=== PATIENT | male | born 1955 | race Caucasian/White ===

== ENCOUNTER → 2018-08-27 15:54 | Outpatient (CLI) | payer OTHER, SELFPAY ==
--- NOTE | 2018-08-27 | DI.US.S_ITS ---
PROCEDURE: US SCROTUM INDICATIONS: LEFT TESTICULAR MASS TECHNIQUE: Real-time scanning was performed of the scrotum and testicles, with image documentation. Color and pulse Doppler interrogation was performed of both testicles. COMPARISON: None. FINDINGS: Right: Testicle is normal in size at 4.5 x 2.3 x 2.8 cm, and homogenous in echotexture. Epididymis is normal in overall size. There is a 9 mm right epididymal head cyst seen. No hydrocele. No varicocele can be seen. Overlying scrotal skin is normal in thickness. Left: Testicle is normal in size at 4.4 x 2.9 x 2.9 cm, and homogeneous in echotexture. A presumed left epididymal cyst is seen that measures 2.7 x 2 x 2.4 cm. The left epididymis is not seen separate from this cyst. No hydrocele. There is a left-sided varicocele seen. Overlying scrotal skin is normal in thickness. Doppler: Color and pulse Doppler demonstrate normal and symmetric arterial flow in both testicles. IMPRESSION: There is a cystic lesion seen on the left, which is most likely related to a large left epididymal cyst that measures 2.7 x 2 x 2.4 cm. Left-sided varicocele noted. Dictated by: Kendrick Ramírez M.D. on 08/27/2018 at 16:42 Approved by: Kendrick Ramírez M.D. on 08/27/2018 at 16:46
== END ==
PROVIDERS: PCP Family Medicine; Visit Provider Family Medicine
DX: N50.3 Cyst of epididymis (principal); I86.1 Scrotal varices
CPT/HCPCS: 76870

== ENCOUNTER → 2019-10-19 13:37 | Outpatient (CLI) | payer OTHER, SELFPAY ==
--- NOTE | 2019-10-19 | DI.CT.S_ITS ---
PROCEDURE: CT SINUS SCREEN WO CON INDICATIONS: Other chronic sinusitis TECHNIQUE: Noncontrast 3.0 mm axial images acquired from the frontal sinuses to the mid-sella, with coronal and sagittal reformats. For radiation dose reduction, the following was used: automated exposure control, adjustment of mA and/or kV according to patient size. COMPARISON: [facility], , CT SINUS, 06/19/2006, 16:25. [facility], CT SINUS, 05/05/2006, 15:32. FINDINGS: Image quality: Excellent. Maxillary Sinuses: Subtotal opacification is seen of the ethmoid air cells. There is demineralization seen of the medial ovalles of the maxillary sinuses. Ethmoid Air Cells: At least moderate mucosal thickening is seen within the ethmoid air cells. There is demineralization seen of the ethmoid air cell septations. Sphenoid Sinuses: No bony remodeling or destruction. Moderate mucosal thickening is seen involving the left sphenoid sinus. There is mild mucosal thickening seen on the right. No bony changes are seen. Frontal Sinuses: There is moderate mucosal thickening involving the right frontal sinus. Mild mucosal thickening is seen involving the left frontal sinus. No frontal sinus bony changes are seen. Ostiomeatal Complexes: Ostiomeatal complexes are patent occluded with soft tissue thickening. There is demineralization of the uncinate process. Miscellaneous: Visualized intra-orbital contents are normal. No donis bullosa or paradoxical turbinate curvature. There is mild to moderate rightward nasal septal deviation. IMPRESSION: Paranasal sinus disease is seen, which is most prominent involving the maxillary sinuses. The degree of mucosal thickening is worse than in 2006. Areas of bony demineralization are seen, which are consistent with chronic sinusitis. The ostiomeatal complexes are opacified, with demineralization of the uncinate processes. Dictated by: Kendrick Ramírez M.D. on 10/19/2019 at 13:12 Approved by: Kendrick Ramírez M.D. on 10/19/2019 at 13:16
== END ==
PROVIDERS: PCP Family Medicine; Visit Provider Otolaryngology
DX: J32.8 Other chronic sinusitis (principal)
CPT/HCPCS: 70486

== ENCOUNTER → 2020-10-24 08:35 | Outpatient (CLI) | payer OTHER, SELFPAY ==
[2020-10-24 11:19] LABS: COVID19 -Nasal RAPID Negative (Negative)
== END ==
PROVIDERS: Visit Provider Nurse Practitioner
DX: Z20.822 Contact with and (suspected) exposure to COVID-19 (principal)
CPT/HCPCS: 87635

== ENCOUNTER 2020-10-26 11:59 | Day surgery (SDC) | payer OTHER, SELFPAY ==
[2020-10-26] VITALS (12 sets, daily range): BP systolic 88–108; BP diastolic 55–73; PULSE 48–59; RESP 12–19; TEMP 35.7–36.7; O2SAT 93–98; BMI 32.1
--- NOTE | 2020-10-26 12:14 | PM.HP.1 ---
History of Present Illness History of Present Illness Date Patient Seen: 10/26/20 Chief complaint: SCREENING COLONOSCOPY Narrative: 64 Years Old Male seen today for consideration of a screening colonoscopy. Last colonoscopy in 2008, no pathology or operative note available at time dictation. There have been no lower GI symptoms suggesting disease such as change in bowel habits, bleeding, abdominal pain or anemia. There's been no family history of colon cancer or colon polyps. Overall health issues have been stable, including no major cardiac events for at least 6 weeks. Past Medical History: DYSLIPIDEMIA Anosmia TENDONITIS, SHOULDER, RIGHT Testicular mass, left SEBORRHEIC KERATOSIS Burning on urinatio PROSTATITIS, ACUTE PAIN, HIP, LEFT EPIDIDYMITIS/ORCHITIS ACTINIC KERATOSIS SINUSITIS, CHRONIC Past Surgical History: Colonoscopy, 2008 Family History: Father: possible colon polyps Mother: Hypertension Siblings: Social History: Marital Status: Children: Occupation: [employer] Household Members: Spouse Cathleen Robin FCAminta Education: 12 + trade school 2 beers per day, 2 joints per day Alcohol drinks/day: 2 per day beer and vodka Meds Home Medications and Allergies Home Medications Medication Instructions Recorded Confirmed Type ibuprofen 500 mg PO Q6H PRN 10/26/20 10/26/20 History Allergies Allergy/AdvReac Type Severity Reaction Status Date / Time No Known Drug Allergies Allergy Verified 10/26/20 12:06 Review of Systems Review of Systems ROS: Yes All systems reviewed with the patient and are negative except as otherwise documented Exam Narrative Exam Narrative: General: well developed, well nourished, in no acute distress, Head: normocephalic and atraumatic, Lungs: normal respiratory effort, clear bilaterally to auscultation, no wheezes rales or rhonchi. Heart: normal rate and regular rhythm, no murmurs, rubs, gallops, or clicks, Abdomen: abdomen soft and non-tender without masses, organomegaly, or abdominal wall hernias, bowel sounds positive. Skin: intact without suspicious lesions or rashes, Psych: alert and cooperative; normal mood and affect; normal attention span and concentration; cognition, remote and recent memory appear to be intact, Assessment & Plan Assessment & Plan narrative: 1. Screening for colon cancer Plan for colonoscopy. The nature and character of the procedure as well as anticipated results were discussed. The possibility of not completing the procedure was also discussed. Possible complications including aspiration pneumonia, bleeding, perforation and reaction to medications either for sedation or preparation and missed lesions were discussed. Questions were answered and proceeding to the colonoscopy was elected. Informed consent signed. I sincerely appreciate the referral allowing me to participate in this patient's care. Please contact me with any questions or concerns.
--- NOTE | 2020-10-26 12:16 | PM.OP.ENDO ---
Operative Date/Time/Diagnoses Date of procedure: 10/26/20 Procedure Notes SCOAP/Timeout: 13:12 Procedure in detail: ENDOSCOPIST: Clari Figueroa MD Sedation RN: Massiel Williamson RN Sedation start time: 1:13 p.m. Sedation end time: 1:37 p.m. PROCEDURE: Colonoscopy INDICATIONS: 1. Screening for colon cancer MEDICATION: Levsin 0.125 mg sublingual, incremental doses of Versed and fentanyl until appropriate level sedation achieved. ASA CLASS: 2 CECAL WITHDRAWAL TIME: 10 minutes COMPLICATIONS: None. EXTENT OF PROCEDURE: Cecum. QUALITY OF PREP: Good with portions of liquid stool. PROCEDURE: Prior to insertion of the colonoscope, a digital rectal examination was accomplished with circumferential palpation of the distal rectal mucosa without significant findings being noted. The high-definition colonoscope was passed into the rectum in the usual fashion and advanced over to the cecum without difficulty. The ileocecal valve, appendiceal stoma, and medial wall all could be inspected and no abnormalities were seen. ASCENDING COLON: As the colonoscope was withdrawn, care was taken to expose and inspect the haustral folds and no abnormalities were seen. HEPATIC FLEXURE: Normal, no polyps, diverticula or other abnormalities. TRANSVERSE COLON: Normal, no polyps, diverticula or other abnormalities. DESCENDING COLON: Normal, no polyps, diverticula or other abnormalities. SIGMOID COLON: Normal, no polyps, diverticula or other abnormalities. RECTUM: Normal. J maneuver was produced. There was no significant perianal disease. The J maneuver was broken. The remainder of the rectum was inspected and there was moderate internal hemorrhoid disease. The scope was withdrawn. IMPRESSION: 1. Normal colonoscopy 2. Internal hemorrhoids PLAN: 1. Repeat colonoscopy 10 years. The possibility of a missed lesion including a malignancy has been discussed with the patient previously. Potential alarm symptoms have been discussed and should be reported immediately.
[2020-10-26] MEDS: LACTATED RINGERS 1,000 ML 200 ML IV (12:24)
[2020-10-26] MEDS: HYOSCYAMINE 0.125 MG TABLET PO (12:25)
[2020-10-26] MEDS: fentaNYL 250 MCG/5 ML INJ IV (13:22)
[2020-10-26] MEDS: MIDAZOLAM 5 MG/5 ML VIAL IV (13:22)
--- NOTE | 2020-10-26 15:06 | SUR.PHASEII ---
Stable colon, left when re4ady and left in stable condition.
== END 2020-10-26 15:03 | disposition home or self-care (01) ==
PROVIDERS: PCP Family Medicine; Referring Provider Student in an Organized Health Care Education/Training Program; Visit Provider Student in an Organized Health Care Education/Training Program
PROC: 0DJD8ZZ Inspection of Lower Intestinal Tract, Via Natural or Artificial Opening Endoscopic (ICD-10-PCS; CPT 45378; principal; 2020-10-26 13:00)
DX: Z12.11 Encounter for screening for malignant neoplasm of colon (principal); K64.8 Other hemorrhoids
CPT/HCPCS: 45378; J2250; J3010

== ENCOUNTER → 2021-04-23 12:00 | Outpatient (CLI) | payer OTHER, SELFPAY ==
--- NOTE | 2021-04-23 | DI.RAD.S_ITS ---
PROCEDURE: XR HIP W PEL IF DONE LT 2V INDICATIONS: left hip pain TECHNIQUE: AP pelvis with lateral view(s) of the left hip(s). COMPARISON: [facility], CR, [id number] W PEL IF PERFORMED, 11/07/2016, 16:20. FINDINGS: Bones: Significant progression of degenerative arthritis of the left hip, now severe. Cannot exclude avascular necrosis. Shallow right acetabulum with mild lateral unroofing of the right femoral head. Mild right hip degenerative arthritis. No acute fracture or dislocation. Soft tissues: The visualized bowel gas pattern is normal. No suspicious soft tissue calcifications. IMPRESSION: 1. Significant progression of degenerative arthritis of the left hip, now severe. Cannot exclude avascular necrosis. 2. Shallow right acetabulum, mild right hip degenerative arthritis. Dictated by: Jon Urena M.D. on 04/23/2021 at 17:04 Approved by: Jon Urena M.D. on 04/23/2021 at 17:06
== END ==
PROVIDERS: PCP Family Medicine; Referring Provider Family Medicine; Visit Provider Family Medicine
DX: M25.552 Pain in left hip (principal); M16.0 Bilateral primary osteoarthritis of hip
CPT/HCPCS: 73502

== ENCOUNTER → 2021-08-02 09:16 | Outpatient (CLI) | payer OTHER, SELFPAY ==
[2021-08-02 10:11] LABS: Add Manual Diff / Slide Review NO; Basophils Absolute Auto 100 /uL (0-100); Basophils Percent Auto 1.3 % (0-2); Eosinophils Absolute Auto 0 /uL (0-450); Hemoglobin 14.3 g/dL (13.5-17.5); Lymphocytes Absolute Auto 1200 /uL (1100-4500); Lymphocytes Percent Auto 29.8 % (25-40); Mean Corpuscular HGB Conc 34.1 % (30-36); Mean Corpuscular Hemoglobin 34.5 PG (26-34); Mean Corpuscular Volume 101.4 fL (80-100); Monocytes Absolute Auto 300 /uL (0-900); Monocytes Percent Auto 7.7 % (3-14); Neutrophils Absolute Auto 2400 /uL (1500-7000); Neutrophils Percent Auto 60.2 % (50-75); Platelet Count 178 X10^3/uL (150-400); Red Blood Cell Count 4.14 X10^6/uL (4.5-5.9); Red Cell Distribution Width 13.2 % (11.6-14.8); White Blood Cell Count 3.9 X10^3/uL (4.5-11.0)
[2021-08-02 10:17] LABS: Appearance Urine UA CLEAR; Bilirubin Urine UA 3+ (NEGATIVE); Color Urine UA YELLOW; Glucose Urine UA NEGATIVE (Negative); Ketones Urine UA NEGATIVE (NEGATIVE); Leukocyte Esterase Urine UA NEGATIVE (NEGATIVE); Nitrite Urine UA NEGATIVE (Negative); Occult Blood Urine UA NEGATIVE (Negative); Protein Urine UA NEGATIVE (Negative); Specific Gravity Urine UA 1.025 (1.000-1.035); Urobilinogen Urine UA 0.2 E.U./dL (0.2); pH Urine UA 5.5 (4.5-8.0)
[2021-08-02 10:25] LABS: Hemoglobin A1C% w Est Avg Glu 5.1 % (4.0-6.0)
[2021-08-02 10:29] LABS: Bacteria Urine None Seen; Culture Indicated Urine Cult Not Indicated; Ictotest Urine Negative (Negative); Mucus Urine 1+ (Negative); RBC Urine None Seen (0-5/HPF); Squamous Epithelial Cell Urine 0-1 /HPF (0-5/HPF); WBC Urine None Seen (0-5/HPF)
[2021-08-02 10:57] LABS: BUN Creatinine Ratio 25.3 (6-22); Blood Urea Nitrogen 22 mg/dL (9-20); Calcium 8.8 mg/dL (8.4-10.2); Carbon Dioxide 26 mmol/L (22-32); Chloride 104 mmol/L (98-107); Estimated Glomerular Filt Rate > 60.0 mL/min (>60); Glucose 120 mg/dL (80-110); HEMOLYSIS < 15 (0-50); Potassium 4.7 mmol/L (3.4-5.1); Sodium 138 mmol/L (137-145)
== END ==
PROVIDERS: PCP Family Medicine; Referring Provider Orthopaedic Surgery; Visit Provider Orthopaedic Surgery
DX: Z01.818 Encounter for other preprocedural examination (principal); R73.9 Hyperglycemia, unspecified; Z01.812 Encounter for preprocedural laboratory examination; N39.0 Urinary tract infection, site not specified
CPT/HCPCS: 36415; 80048; 81001; 83036; 85025; 93005; 93010

== ENCOUNTER → 2021-09-11 08:31 | Outpatient (CLI) | payer OTHER, SELFPAY ==
[2021-09-11 11:51] LABS: COVID19 -Nasal RAPID Negative (Negative)
== END ==
PROVIDERS: PCP Family Medicine; Visit Provider Physician Assistant
DX: Z20.822 Contact with and (suspected) exposure to COVID-19 (principal)
CPT/HCPCS: 87635

== ENCOUNTER 2021-09-12 06:36 | Day surgery (SDC) | payer OTHER, SELFPAY ==
[2021-09-03 08:52] VITALS: BMI 28.1
[2021-09-12] VITALS (13 sets, daily range): BP systolic 99–130; BP diastolic 62–97; PULSE 62–74; RESP 12–17; TEMP 36.3–36.8; O2SAT 95–99; BMI 28.1
[2021-09-12] MEDS: LACTATED RINGERS 1,000 ML 42 ML IV ×2 (07:10→11:03)
[2021-09-12] MEDS: ACETAMINOPHEN 325 MG TABLET 975 MG PO (07:13)
[2021-09-12] MEDS: CELECOXIB 200 MG CAPSULE PO (07:14)
[2021-09-12] MEDS: VANCOMYCIN 1,000 MG/200 ML PIGGYBACK 200 MG IV (07:14)
--- NOTE | 2021-09-12 07:27 | PM.PREOP ---
Pre-operative Note COVID-19 COVID-19 status: Negative Interval Note History & Physical reviewed/Exam performed by Physician: Yes Changes to H&P: No
--- NOTE | 2021-09-12 07:28 | PM.OP.1 ---
Operative Date/Time/Diagnoses Date of procedure: 09/12/21 Time of procedure: 07:50 Pre-op diagnosis: left hip OA Post-op diagnosis: same Procedure & Clinicians Procedure: Left total hip arthroplasty anterior approach Same procedure as scheduled: Yes Indications: The patient has had progressively worsening left hip pain with radiographic changes consistent with arthritis. Non-operative management has failed and the patient has requested total hip replacement. The risks, benefits and alternatives to surgery were discussed with the patient prior to proceeding. Risks discussed included, but were not limited to, failure to relieve pain, leg length discrepancy, dislocation, stiffness, infection, nerve damage, deep venous thrombosis, pulmonary embolism, stroke, coma, heart attack, permanent paralysis and , as well as the potential need for eventual revision of the prosthetic. Surgeon: Natalie Epstein Customer Acquisition Manager: Aaron Gr Anesthesia Type: General and Spinal Operative Notes Findings: Severe left hip osteoarthritis, adequate bone, good stability Closure Type: primary Specimen(s): none sent Prosthetic devices, grafts, tissues, transplants, or devices: Epstein and nephew anthology size 8 standard offset 56 mm cup, neutral poly liner, 36 by 0 Oxinium head,two 6.5 mm screw Applied: drain(s) Estimated Blood Loss (mL): 250 Blood products transfused: none Procedure in detail: The patient was brought to the operating room. Patient was carefully positioned in the supine position. Time-out was performed and antibiotics were given. Anesthesia was induced. He was positioned in the on the table in order to allow hyperextension of the hip. The left lower extremity was prepped and draped in a standard sterile fashion. An anterior left hip incision was made 1 fingerbreadth lateral to the anterior superior iliac spine and extended distally towards the greater trochanter. Dissection was carried out through skin and subcutaneous tissues. Superficial hemostasis was achieved. The fascia over the tensor fascia oren was defined and incised with a knife. Two Allis clamps were used to grasp the fascia. Tensor fascia oren was retracted laterally. A gelpi retractor was placed. Dissection was carried out down along the neck. The circumflex vessels were carefully identified and cauterized with the Aqua Mantis. There was good visualization of the femoral neck. A Cobra was placed superior to the neck and the gluteus fibers were carefully stripped from that superior aspect of the capsule. A 2nd retractor was placed along the inferior aspect of the neck. The rectus insertion along the capsule was partially released. A 3rd retractor that was then gently placed over the rim of the acetabulum under the rectus. Capsule was carefully incised and released from the intertrochanteric line circumferentially superior to the mid sagittal line and inferiorly to the mid sagittal line until the lesser trochanter was palpable. A tag stitch was placed both in the superior and inferior limb of the capsular insertion. Along the acetabulum capsule was also released up to the mid sagittal 12:00 position. A portion of the labrum was resected. A saw was used to perform an osteotomy at the level of the intertrochanteric line and the junction of the superior femoral neck leaving approximately 1 finger breath of residual inferior neck above the lesser trochanter. A 2nd cut was made along the femoral neck at the base of the head and a napkin ring of neck was removed. Corkscrew was placed in the femoral head and the head was removed without difficulty. Retractors were then repositioned around the acetabulum. Residual labrum was resected and additional osteophytes were removed. A reamer that was 4 mm below the templated size was placed by hand in the acetabulum and it was reamed to centralize the acetabulum. It was then reamed up to 2 under the templated size and fluoroscopy was brought in to confirm the position of the reaming and depth of reaming. I reamed 1 under the anticipated size. A trial cup was placed and noted that it was appropriately sized and fluoroscopy confirmed position and depth. The component was open and inserted without difficulty fluoroscopic imaging was used to confirm that the cup had been adequately seated and was well positioned. It was further stabilized with two screws. Neutral poly liner was placed. The cup was tested and noted to be stable. Attention was then directed to the femur. The femur was gently hyperextended additional capsular release was performed as needed in order to allow adequate visualization of the proximal femur with elevation of the femur. Patient was placed in a hyperextended slightly adducted position with maximum external rotation. Box osteotome was used to check for any residual neck as well as sclerotic bone along the trochanter. [place] pepper was placed in the femur. Additional broaching was performed. Canal finder was used to determine the alignment of the canal and position. Size 1 broach was placed. The canal was then appropriately broached up to the templated size as long as there was adequate stability of the broach and serial advancement of the broach without excessive impingement. Specific attention was directed at avoiding varus attempting to direct the distal aspect of the broach more anteriorly and avoiding excessive anteversion. Trial reduction showed acceptable range of motion, good stability, no posterior impingement, faith of leg length and appropriate lateral shuck. The femoral prosthesis was slightly undersized and I went up 2 sizes and was very specific to avoid excessive anteversion. Good stability was achieved in the prosthesis. I also hyperflexed the hip and checked that there was no impingement anteriorly and there was good stability with flexion, adduction and internal rotation. Marcaine and Exparel were injected. The stem was placed without difficulty. Repeat trial reduction and x-ray showed acceptable overall position, length, and no evidence of the femoral fracture. Final head was placed. Wound was meticulously irrigated with normal saline. The hip was reduced and additional Exparel and Marcaine were injected. The capsule was closed with interrupted nonabsorbable sutures. The fascia of the tensor was closed with interrupted and running Vicryl. No drain was placed. Any tensor fascia oren muscle that appeared to be contused or injured which was a minimal amount was carefully resected. Capsule around the tensor was injected with Exparel and Marcaine. The skin was closed with barbed stitches for the subcutaneous tissue and skin. We also used surgical glue. The wound was dressed sterilely. Brief Betadine soak was also used and was meticulously irrigated with normal saline. Patient was transferred to recovery room in satisfactory condition. Complications: none Post-operative Condition: stable Disposition: Acute Care Plan for aftercare: The patient will be maintained on a standard total hip replacement protocol with weight bearing as tolerated and anterior hip precautions. The patient will receive Aspirin and sequential compression devices for DVT prophylaxis. The patient will be discharged home when safe for the home environment.
--- NOTE | 2021-09-12 08:06 | DI.RAD.S_ITS ---
PROCEDURE: XR HIP W PEL IF DONE LT 2V INDICATIONS: POST OP TOTAL LEFT HIP TECHNIQUE: AP pelvis and lateral view of the left hip acquired. COMPARISON: [facility], [place], XR PELVIS WITH LATERAL HIP LEFT, 09/04/2021, 10:19. [facility], [place], XR HIP W PEL IF DONE LT 2V, 09/12/2021, 10:30. [facility], CR, XR HIP W PEL IF DONE LT 2V, 04/23/2021, 12:20. FINDINGS: Bones: Patient is status post left hip arthroplasty, with hardware components in expected positions. The hip joint appears congruent. The visualized bony structures appear intact. Soft tissues: Overlying postoperative changes are noted. No suspicious soft tissue densities. IMPRESSION: Expected appearance of the left hip arthroplasty. Dictated by: Kulwinder Sandoval M.D. on 09/12/2021 at 12:29 Approved by: Kulwinder Sandoval M.D. on 09/12/2021 at 12:30
--- NOTE | 2021-09-12 08:06 | DI.RAD.S_ITS ---
PROCEDURE: XR HIP W PEL IF DONE LT 2V INDICATIONS: ANTERIOR TOTAL LEFT HIP TECHNIQUE: 4 spot fluoroscopic intraoperative images. COMPARISON: [facility], CR, XR HIP W PEL IF DONE LT 2V, 04/23/2021, 12:20. FINDINGS: Intraoperative spot fluoroscopic images demonstrate a left hip arthroplasty with acetabular cup component and femoral stem component in expected positions. The femoral head component is not currently present. IMPRESSION: Intraoperative images from left hip arthroplasty demonstrate expected positions of hardware components. Dictated by: Ronni Lam M.D. on 09/12/2021 at 11:30 Approved by: Ronni Lam M.D. on 09/12/2021 at 11:32
[2021-09-12] MEDS: CEFAZOLIN 2 GM/20 ML SYRINGE IV ×2 (08:20→15:10)
[2021-09-12] MEDS: TRANEXAMIC ACID 1,000 MG VIAL 2000 MG INJ (08:21)
--- NOTE | 2021-09-12 08:31 | SUR.OPER ---
Patient supine on padded [place] table, one arm on padded arm board at <90, other arm padded and secured with tape across patient's chest, both legs secured in padded traction boots and positioned per surgeon, padded post at patient's groin, pressure points checked and padded.
[2021-09-12] MEDS: BUPIVACAINE LIPOSOME 266 MG/20 ML VIAL INJ (08:36)
[2021-09-12] MEDS: BUPIVACAINE 0.25% (PF) 60 ML, EPINEPHrine 0.3 MG INJ (08:36)
[2021-09-12] MEDS: SODIUM CHLORIDE IRRIG SOLUTION 250 ML, POVIDONE-IODINE SPONGE STICKS 1 APPLIC IRR (08:38)
[2021-09-12] MEDS: OXYCODONE/ACETAMINOPHEN 5/325 TABLET 1 TAB PO (11:48)
--- NOTE | 2021-09-12 12:28 | SUR.PHASEI ---
Report to floor. Wide awake,meets criteria. iv patent.vss. dressing left hip and csm lle unchanged. dorsi/planter flexions well . denies numb or tingling in legs/feet/buttocks. moves well in bed. pain at 4/10 left hip and shoulder. to floor by bed with 2 bags of clothes/glasses/ and a walker. 1220-in room 210. Rn at bedside to hand off.
--- NOTE | 2021-09-12 12:32 | PC.NURSE ---
Day shift: Pt on AC unit from PACU at approx 1230. He is A&Ox4. Reports pain 4/10 left hip when not moving. Rt shoulder pain reported as better. Tolerating SCD's. VS WNL and PPP. CMS intact. Denies any nausea. Also denies any chest pain. HAs no drains or Amin. He is hoping to go home later today but said he will be ok if he doesn't. Bed alarm is on. Oriented to room and call light. Agrees to not get OOB w/o help from staff. Will continue w/ post-op plan of care.
[2021-09-12] MEDS: LACTATED RINGERS 1,000 ML 125 ML IV (12:59)
[2021-09-12] MEDS: IBUPROFEN 400 MG TABLET PO ×2 (13:05→16:09)
[2021-09-12] MEDS: OXYCODONE IR 5 MG TABLET PO ×2 (13:07→17:05)
--- NOTE | 2021-09-12 13:57 | PT.IIE ---
Current Diagnoses Unilateral primary osteoarthritis, left hip (09/12/21) Surgery Performed Operation Date: 09/12/21 07:45 Actual Procedures p Total Hip Arthroplasty/Anterior Approach(Left) - Natalie Epstein MD Medical History (Last Updated 09/03/21 @ 09:10 by Parul Winslow, RN) Anosmia Back pain Dyslipidemia Nasal polyps Osteoarthritis Prostatitis Sinusitis Surfer's ear Physical Therapy Inpatient Evaluation/Re-Eval M1 PT/OT-IP Prior Functional Status Start: 09/12/21 16:06 Freq: NEEDED Status: Active Protocol: Document 09/12/21 13:57 AB (Rec: 09/12/21 16:17 AB [id number]) Medical Review Prior Functional Status Medical History Reviewed Yes Communication able to make needs known Mobility and Gait pt stated that he is independent with all mobilities and ambulation without AD Social History Household Members spouse Living Arrangements House Number of Floors (Floors) One Floor Number of Stairs To Enter/Railing? 1 step to enter Home Environment Standard Height Toilet,Tub/ Shower Home Equipment Front Wheel Walker,Raised Toilet Seat w/Armrests M2 PT-IP Current Condition Start: 09/12/21 16:06 Freq: NEEDED Status: Active Protocol: Document 09/12/21 13:57 AB (Rec: 09/12/21 16:17 AB [id number]) Physical Therapy Current Condition Current Condition Evaluation Date 09/12/21 Treatment Diagnosis s/p L SUNSHINE anterior approach; difficulty in walking Onset Date 09/12/21 M3 PT-IP Subjective Start: 09/12/21 16:06 Freq: NEEDED Status: Active Protocol: Document 09/12/21 13:57 AB (Rec: 09/12/21 16:17 AB [id number]) Subjective Physical Therapy Visit Type Type Initial Evaluation Visit Start Time 13:57 Visit Stop Time 14:46 Total Visit Minutes 49 Number of RETURN TO SERVICE INSPECTOR Visits 0 Therapy Pain Assessment Pain When Pain Assessed At Rest Pain Present Pain Present Pain Reported Location Left Hip Intensity 3 Scale Used Numeric (0 - 10) Pain Management Techniques Apply Cold,Modification of Treatment,Re-positioning, Timing of Activity with Medications M4 PT-IP Mobility and Gait Start: 09/12/21 16:06 Freq: NEEDED Status: Active Protocol: Document 09/12/21 13:57 AB (Rec: 09/12/21 16:17 AB [id number]) PT-Bed Mobility Assessment Supine to Sit Supine to Sit Standby Assistance PT-Transfer Assessment Sit to and From Stand Sit to and from Stand Standby Assistance,Contact Guard Assistance,1 Person Assistance,Use of Upper Extremities Equipment Transfer Assistive Device Gait Belt,Front Wheeled Walker Orthotic/Prosthetic Devices or Brace: No Transfers Transfer Destination Chair Transfer Technique ambulated Transfer Ability Level of Assist Standby Assistance,Contact Guard Assistance,1 Person Assistance,Use of Upper Extremities Comments Mobility Comments reviewed hip precautions with pt. pt completed bed mobility supine to sit SBA. able to sit on EOB SBA. completed sit to stand CGA and ambulated in room ~ 20 ft using FWW CGA. pt sat on chair. agreed to do stairs. completed sit to stand from chair SBA and ambulated towards platform step ~ 30 ft using FWW SBA to occasional CGA. completed up/down step using FWW initially with cues but repeated another set without cues needed. pt ambulated back to his room using FWW SBA and wants to sit up on chair. positioned on chair. call light and table placed within reach. Gait Assessment Gait Gait Assistance Required: Standby Assistance,Contact Guard Assist Distance (Feet) 30 Able to Maintain Weight Bearing Status Yes During Gait Assistive Devices Assistive Device Gait Belt,Front Wheeled Walker Orthotic/Prosthetic Devices or Brace: No Gait Deviations General Gait Pattern Decreased Stride Length, Decreased Feet Clearance Factors Limiting Gait Function Factors Limiting Gait Function Decreased Activity Tolerance, Decreased Strength,Limited Range of Motion,Pain,Poor Balance,Poor Safety Awareness Stair Climbing Assessment Evaluation Level of Assist On Stairs Contact Guard Assistance Devices Stair Climbing Assistive Devices Front Wheel Walker Technique/Endurance Stair Climbing Direction Ascend and Descend Stair Climbing Technique Step to Step Number of Steps Climbed 1 Query Text: Stair Climbing Set # Repetitions (reps) 2 PT-Balance Assessment Sitting Balance and Reactions Static Sitting Balance Ability Normal Dynamic Sitting Balance Ability Good Standing Balance and Reactions Static Standing Balance Ability Fair Dynamic Standing Balance Ability Fair Device Used FWW M5 PT-IP Objective Assessments Start: 09/12/21 16:06 Freq: NEEDED Status: Active Protocol: Document 09/12/21 13:57 AB (Rec: 09/12/21 16:17 AB [id number]) Orientation Orientation/Cognition Level of Alertness Alert Orientation Name,Age,Birthday,Month,Date, Year,Day of Week,Place, Situation Language Function Ability No Deficits Noted Safety Awareness Decreased Safety Awareness Memory Description No Deficits Noted Gross Range of Motion Lower Extremity ROM Assessment Within Functional Limits Strength Lower Extremity Strength Assessment Left Impaired Hip 4-/5 Coordination Assessment Gross Coordination Gross Coordination WNL Sensation Assessment Sensation Gross Sensation WNL M6 PT-IP Treatment Start: 09/12/21 16:06 Freq: NEEDED Status: Active Protocol: Document 09/12/21 13:57 AB (Rec: 09/12/21 16:17 AB [id number]) Physical Therapy Treatment Education Education Provided Precautions,Weight Bearing Status,Post-Op Packet,Safety M7 PT-IP Assessment and Plan Start: 09/12/21 16:06 Freq: NEEDED Status: Active Protocol: Document 09/12/21 13:57 AB (Rec: 09/12/21 16:17 AB [id number]) PT Summary Assessment and Plan Potential Rehabilitation Potential Good Status of Condition at Evaluation Stable Summary Impairments Pain,ROM,Strength,Balance, Coordination,Sensation,Tone, Cognition,Bed Mobility, Transfers,Gait,Activity Tolerance Assessment Summary pt requiring SBA to CGA with mobility using FWW. pt plans to go home and spouse will be able to assist pt. pt has outpt PT set up. pt may go home when medically stable. Goals Bed Mobility Goal Independent Transfer Goal Independent,Front Wheeled Walker Gait Goal Independent,Front Wheel Walker Gait Distance 300 Other Goals up/down platform set using FWW mod I Days to Meet Goals 3 Frequency of Treatment Frequency Of Treatment Twice a Day Treatment Plan Physical Therapy Treatment Plan Bed Mobility Training,Transfer Training,Gait Training, Therapeutic Exercise,Balance Retraining,Post Op Education, Discharge Planning,Hot or Cold Pack,Neuromuscular Re-ed, Coordination Retraining,Manual Therapy Precautions Anterior Hip Precautions No Hip Extension,No Hip External Rotation Weight Bearing Status Weight Bearing Status Weight Bear as Tolerated Allowed Weight Bearing Amount (enter % LLE WBAT or #) (%) Recommendations To Nursing Amount of Assist Needed 1 Person Assist Discharge Recommendations PT Discharge Recommendations Home with Assistance, Outpatient PT Transportation Needs at Discharge Private Vehicle
[2021-09-12] MEDS: INFLUENZA HD VACCINE 0.7 ML SYRINGE IM (15:05)
[2021-09-12] MEDS: ACETAMINOPHEN 325 MG TABLET 650 MG PO (15:07)
--- NOTE | 2021-09-12 16:50 | PC.NURSE ---
Day shift: Pt had a successful void at approx 1645. Pt has called his and will be going home in the next hour.
--- NOTE | 2021-09-12 17:39 | PC.NURSE ---
Day shift: Paperwork signed and all questions answered. Pt's spouse in room for d/c teachings. CMS remains intact and PPP. No nausea and pain well controlled per MAR. Pt has all personal belongings and MD scripts. Taken to car in that his spouse is driving by LEONCIO Barth at approx 1745.
== END 2021-09-12 17:41 | disposition home or self-care (01) ==
LOC: OR 06:41 → AC 06:42
PROVIDERS: PCP Family Medicine; Referring Provider Family Medicine; Visit Provider Orthopaedic Surgery
PROC: (CPT 27130; principal; 2021-09-12 07:45)
DX: M16.12 Unilateral primary osteoarthritis, left hip (principal); F17.210 Nicotine dependence, cigarettes, uncomplicated; Z23 Encounter for immunization
CPT/HCPCS: 27130; 73502; 76000; 90471; 90662; 97116; 97161; C1776; C9290; J0171; J0690; J2250; J2274; J2704; J3010

== ENCOUNTER → 2021-09-19 09:44 | Outpatient (CLI) | payer OTHER, SELFPAY ==
[2021-09-12 13:24] VITALS: BMI 28.1
[2021-09-19 10:33] LABS: Appearance Urine UA CLEAR; Bilirubin Urine UA 2+ (NEGATIVE); Color Urine UA YELLOW; Glucose Urine UA NEGATIVE (Negative); Ketones Urine UA NEGATIVE (NEGATIVE); Leukocyte Esterase Urine UA NEGATIVE (NEGATIVE); Nitrite Urine UA NEGATIVE (Negative); Occult Blood Urine UA 3+ (Negative); Protein Urine UA NEGATIVE (Negative); Specific Gravity Urine UA <=1.005 (1.000-1.035); Urobilinogen Urine UA 0.2 E.U./dL (0.2)
[2021-09-19 10:47] LABS: Ictotest Urine Negative (Negative); RBC Urine 1-5/HPF (0-5/HPF); Squamous Epithelial Cell Urine 0-1 /HPF (0-5/HPF)
[2021-09-19 10:48] LABS: Culture Indicated Urine Cult Not Indicated; WBC Urine None Seen (0-5/HPF)
[2021-09-19 11:24] LABS: Bacteria Urine None Seen
== END ==
PROVIDERS: PCP Family Medicine; Referring Provider Orthopaedic Surgery; Visit Provider Orthopaedic Surgery
DX: M16.12 Unilateral primary osteoarthritis, left hip (principal)
CPT/HCPCS: 81001

== ENCOUNTER → 2022-12-04 07:53 | Outpatient (CLI) | payer OTHER, SELFPAY ==
[2021-09-12 13:24] VITALS: BMI 28.1
--- NOTE | 2022-12-04 | DI.MRI.S_ITS ---
PROCEDURE: MR KNEE LT WO CON INDICATIONS: RULE OUT LOOSE BODY IN KNEE TECHNIQUE: Noncontrast sagittal PD fast spin echo and T2 fast spin echo with fat saturation, sagittal 3-D FLASH with fat saturation; coronal T1 spin echo and PD fast spin echo with fat saturation, and axial PD fast spin echo with fat saturation through the knee. COMPARISON: [facility] [place], CR, XR KNEE 4+ VIEWS LEFT, 10/29/2022, 10:21. FINDINGS: Image quality: Excellent. Menisci: Medial extrusion of the medial meniscus. Linear horizontal and oblique high T2 signal intensity within the inner, middle, and peripheral thirds of the anterior horn, body, and posterior horn medial meniscus, demonstrating superior and inferior articular surface extension, indicating complex tearing. Cruciate ligaments: The anterior and posterior cruciate ligaments appear intact. Medial structures: The medial collateral ligament appears intact. Visualized portions of the pes anserinus tendons appear normal. No abnormal bursal fluid. Lateral structures: The lateral collateral ligament, long and short heads of the biceps femoris tendon appear intact. The popliteus tendon appears normal. Iliotibial band appears normal. Anterior structures: The quadriceps and patellar tendons appear intact. Mild T2 signal elevation within the quadriceps and patellar tendons at the patellar insertion sites. Patellar alignment is normal. No femoral trochlear dysplasia or ventral trochlear prominence. No edema in the infrapatellar fat pad. Bones and cartilage: No bone marrow contusions or fractures. Mild tricompartmental periarticular osteophyte formation. Severe articular cartilage loss diffusely overlies the weight-bearing aspects of the medial femoral condyle and medial tibial plateau. Moderate articular cartilage loss overlies the medial and lateral patellar facets. Joint space: There is a small knee joint effusion and a trace Nguyen's cyst. Normal appearing synovial plicae are incidentally noted. IMPRESSION: 1. Tricompartmental osteoarthritis with associated articular cartilage loss. 2. Complex tearing of the medial meniscus. 3. Mild quadriceps and patellar tendinopathy. Dictated by: Debbie Tirado M.D. on 12/04/2022 at 11:37 Transcribed by: NATTY on 12/04/2022 at 11:39 Approved by: Debbie Tirado M.D. on 12/04/2022 at 16:53
== END ==
PROVIDERS: PCP Family Medicine; Referring Provider Orthopaedic Surgery; Visit Provider Orthopaedic Surgery
DX: S83.232A Complex tear of medial meniscus, current injury, left knee, initial encounter (principal); M17.12 Unilateral primary osteoarthritis, left knee; M23.42 Loose body in knee, left knee
CPT/HCPCS: 73721

== ENCOUNTER → 2022-12-18 13:53 | Outpatient (CLI) | payer OTHER, SELFPAY ==
[2021-09-12 13:24] VITALS: BMI 28.1
[2022-12-18 14:32] LABS: Add Manual Diff / Slide Review NO; Basophils Absolute Auto 100 /uL (0-100); Eosinophils Absolute Auto 100 /uL (0-450); Eosinophils Percent Auto 1.8 % (2-4); Hematocrit 43.4 % (41-53); Hemoglobin 14.5 g/dL (13.5-17.5); Lymphocytes Absolute Auto 1900 /uL (1100-4500); Lymphocytes Percent Auto 34.4 % (25-40); Mean Corpuscular HGB Conc 33.4 % (30-36); Mean Corpuscular Hemoglobin 33.6 PG (26-34); Mean Corpuscular Volume 100.5 fL (80-100); Monocytes Absolute Auto 400 /uL (0-900); Monocytes Percent Auto 7.3 % (3-14); Neutrophils Absolute Auto 3100 /uL (1500-7000); Neutrophils Percent Auto 55.5 % (50-75); Platelet Count 193 X10^3/uL (150-400); Red Blood Cell Count 4.32 X10^6/uL (4.5-5.9); Red Cell Distribution Width 14.2 % (11.6-14.8); White Blood Cell Count 5.6 X10^3/uL (4.5-11.0)
[2022-12-18 14:38] LABS: Appearance Urine UA CLEAR; Bilirubin Urine UA NEGATIVE (NEGATIVE); Color Urine UA YELLOW; Glucose Urine UA NEGATIVE (Negative); Ketones Urine UA NEGATIVE (NEGATIVE); Leukocyte Esterase Urine UA NEGATIVE (NEGATIVE); Nitrite Urine UA NEGATIVE (Negative); Occult Blood Urine UA NEGATIVE (Negative); Protein Urine UA NEGATIVE (Negative); Urobilinogen Urine UA 0.2 E.U./dL (0.2); pH Urine UA 6.5 (4.5-8.0)
[2022-12-18 14:41] LABS: Hemoglobin A1C% w Est Avg Glu 5.3 % (4.0-6.0)
[2022-12-18 14:53] LABS: Bacteria Urine None Seen; Culture Indicated Urine Cult Not Indicated; RBC Urine None Seen (0-5/HPF); Squamous Epithelial Cell Urine 0-1 /HPF (0-5/HPF); WBC Urine None Seen (0-5/HPF)
[2022-12-18 14:55] LABS: BUN Creatinine Ratio 24.2 (6-22); Blood Urea Nitrogen 23 mg/dL (9-20); Calcium 8.5 mg/dL (8.4-10.2); Carbon Dioxide 29 mmol/L (22-32); Chloride 101 mmol/L (98-107); Estimated Glomerular Filt Rate > 60 mL/min (>60); Glucose 112 mg/dL (80-110); HEMOLYSIS < 15 (0-50); Potassium 4.5 mmol/L (3.4-5.1); Sodium 137 mmol/L (137-145)
== END ==
PROVIDERS: PCP Family Medicine; Referring Provider Orthopaedic Surgery; Visit Provider Orthopaedic Surgery
DX: Z01.818 Encounter for other preprocedural examination (principal); R73.9 Hyperglycemia, unspecified; Z01.812 Encounter for preprocedural laboratory examination; N39.0 Urinary tract infection, site not specified
CPT/HCPCS: 36415; 80048; 81001; 83036; 85025; 93005

== ENCOUNTER → 2023-03-25 14:00 | Outpatient (CLI) | payer OTHER, SELFPAY ==
[2021-09-12 13:24] VITALS: BMI 28.1
--- NOTE | 2023-03-25 | DI.US.S_ITS ---
PROCEDURE: US PERIPH VENOUS LOW EXTREM LT INDICATIONS: LEFT LEG PAIN AND SWELLING TECHNIQUE: Real-time imaging, as well as color and pulse Doppler interrogation, were performed of the lower extremity deep veins from the inguinal ligament to the popliteal fossa. COMPARISON: None. FINDINGS: The common femoral, femoral and popliteal veins are normally compressible, and free of intraluminal thrombus. Color and pulse Doppler demonstrate normal phasic intraluminal flow. There is normal augmentation response to distal compression maneuver. There is a large complex fluid collection seen involving the calf, without abnormal vascularity. This measures 4.4 x 2 x 40 cm. IMPRESSION: Negative for deep venous thrombosis. Large nonvascular calf hematoma seen. Dictated by: Kendrick Ramírez M.D. on 03/25/2023 at 17:37 Approved by: Kendrick Ramírez M.D. on 03/25/2023 at 17:37
== END ==
PROVIDERS: PCP Family Medicine; Referring Provider Orthopaedic Surgery; Visit Provider Orthopaedic Surgery
DX: M79.81 Nontraumatic hematoma of soft tissue; M79.605 Pain in left leg; Z96.652 Presence of left artificial knee joint
CPT/HCPCS: 93971

== ENCOUNTER → 2024-10-27 07:49 | Outpatient (CLI) | payer OTHER, SELFPAY ==
[2021-09-12 13:24] VITALS: BMI 28.1
--- NOTE | 2024-10-27 07:50 | DI.MRI.S_ITS ---
PROCEDURE: MR SHOULDER LT WO CON INDICATIONS: R/O rotator cuff tear TECHNIQUE: Noncontrast oblique coronal T2 fast spin echo with fat saturation, oblique sagittal T1 spin echo and T2 fast spin echo with fat saturation, axial T1 spin echo and T2 fast spin echo with fat saturation through the shoulder. COMPARISON: [facility] [place], CR, XR SHOULDER 2+ VIEWS LEFT, 10/19/2024, 8:54. FINDINGS: Image quality: Excellent. Rotator cuff: Moderate supraspinatus and infraspinatus tendinosis with bursal surface fraying versus low-grade partial tearing. Small foci of low-grade partial intrasubstance tearing are seen at the distal supraspinatus insertion. Teres minor and subscapularis tendons are intact. Rotator cuff muscles are normal in bulk. Mild edema within the medial supraspinatus muscle is suspicious for a low-grade strain. Bones and bursae: No acute trabecular bone injury or fracture. Moderate partial thickness cartilage irregularity at the superior medial humeral head with small marginal osteophytes. Likely full-thickness cartilage loss at the posterior glenoid with subchondral cystic changes and subchondral edema. Moderate degenerative changes of the acromioclavicular joint with subchondral cystic changes and marginal osteophytes. Trace subacromial/subdeltoid bursal fluid. No significant glenohumeral effusion. Capsule and soft tissues: Diffuse labral degeneration and nearly circumferential nondisplaced tearing, which is likely chronic. A 5 mm paralabral cyst is seen posterior superiorly. Proximal biceps long head tendon demonstrates moderate tendinosis. There is partial effacement of the fat signal in the rotator interval. Anterior band of the inferior glenohumeral ligament appears mildly thickened. IMPRESSION: 1. Moderate supraspinatus and infraspinatus tendinosis with low-grade partial bursal sided tearing as well as small foci of low-grade partial intrasubstance tearing at the distal insertions. 2. Mild edema within the medial supraspinatus muscle is suspicious for a low-grade strain. 3. Moderate proximal biceps long head tendinosis. 4. Diffuse labral degeneration and nearly circumferential chronic labral tearing. 5 mm paralabral cyst posterior superiorly. Areas of grade 3-4 chondromalacia in the glenohumeral joint. 5. Moderate acromioclavicular joint osteoarthrosis. 6. Partial effacement of the rotator interval fat and mild thickening of the inferior glenohumeral ligament are nonspecific, but can be seen in the setting of the clinical syndrome of adhesive capsulitis. Approved by: Ronni Lam M.D. on 10/27/2024 at 10:35
== END ==
PROVIDERS: PCP Family Medicine; Referring Provider Orthopaedic Surgery; Visit Provider Orthopaedic Surgery
DX: S43.432A Superior glenoid labrum lesion of left shoulder, initial encounter (principal); M75.112 Incomplete rotator cuff tear or rupture of left shoulder, not specified as traumatic; M19.012 Primary osteoarthritis, left shoulder; M94.212 Chondromalacia, left shoulder; R60.0 Localized edema
CPT/HCPCS: 73221

== ENCOUNTER → 2024-11-07 14:55 | Outpatient (CLI) | payer OTHER, SELFPAY ==
[2021-09-12 13:24] VITALS: BMI 28.1
--- NOTE | 2024-11-07 14:56 | DI.CT.S_ITS ---
PROCEDURE: CT SINUS SCREEN WO CON INDICATIONS: CHRONIC PANISINUSITIS,NASAL POLYPOSIS,HYPOSMIA TECHNIQUE: Noncontrast 3.0 mm axial images acquired from the frontal sinuses to the mid-sella, with coronal and sagittal reformats. For radiation dose reduction, the following was used: automated exposure control, adjustment of mA and/or kV according to patient size. COMPARISON: None. FINDINGS: Maxillary Sinuses: Mucosal thickening along the floor the right maxillary sinus measures up to 6 mm. No osseous remodeling. Ethmoid Air Cells: Anterior ethmoid mucosal thickening. No remodeling. Sphenoid Sinuses: No bony remodeling or destruction. Sinuses are clear. Frontal Sinuses: No bony remodeling or destruction. Sinuses are clear. Ostiomeatal Complexes: Ostiomeatal complexes are patent. No Kaden cells. Miscellaneous: Visualized intra-orbital contents are normal. No donis bullosa or paradoxical turbinate curvature. No nasal septal deviation. Incidental low made of bilateral external auditory canal osteomas resulting in significant canal stenosis IMPRESSION: Right maxillary and anterior ethmoid sinus mucosal thickening without osseous remodeling. 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 Approved by: Pool Correia M.D. on 11/08/2024 at 11:09
== END ==
PROVIDERS: PCP Family Medicine; Referring Provider Otolaryngology; Visit Provider Otolaryngology
DX: J32.4 Chronic pansinusitis (principal); J33.9 Nasal polyp, unspecified; R43.8 Other disturbances of smell and taste; J34.89 Other specified disorders of nose and nasal sinuses; R44.8 Other symptoms and signs involving general sensations and perceptions; D21.0 Benign neoplasm of connective and other soft tissue of head, face and neck; H61.303 Acquired stenosis of external ear canal, unspecified, bilateral
CPT/HCPCS: 70486

== ENCOUNTER 2025-01-05 12:03 | Day surgery (SDC) | payer OTHER, SELFPAY ==
[2021-09-12 13:24] VITALS: BMI 28.1
[2024-12-27 14:49] VITALS: BMI 29.2
[2025-01-05] VITALS (7 sets, daily range): BP systolic 111–127; BP diastolic 71–82; PULSE 62–76; RESP 12–18; TEMP 36.2–36.4; O2SAT 94–97; BMI 31.4
[2025-01-05] MEDS: OXYMETAZOLINE NASAL SPRAY 30 ML 2 SPRAYS NASAL ×2 (12:57→14:25)
[2025-01-05] MEDS: LACTATED RINGERS 1,000 ML 42 ML IV ×2 (12:57→16:34)
[2025-01-05] MEDS: ACETAMINOPHEN 325 MG TABLET 975 MG PO (12:58)
--- NOTE | 2025-01-05 13:32 | PM.PREOP ---
Pre-operative Note Interval Note History & Physical reviewed/Exam performed by Physician: Yes Changes to H&P: No
--- NOTE | 2025-01-05 13:32 | PM.HP.1 ---
History of Present Illness History of Present Illness Date Patient Seen: 01/05/25 Time Patient Seen: 13:32 Chief complaint: ENT Narrative: 69-year-old male last seen in clinic 11/30/2024, medical clearance 12/01, presents for scheduled septoplasty, bilateral endoscopic sinus surgery and inferior turbinate reduction. No interval health changes, wishes to proceed. Continues at least once daily budesonide nasal irrigations. COUNTS INCLUDE 234 BEDS AT THE [facility] Medical History Nasal septal deviation Hyposmia Chronic pansinusitis Osteoarthritis Back pain Surfer's ear Nasal polyps Sinusitis Prostatitis Anosmia Dyslipidemia Surgical History History of total left hip replacement (09/12/21) Hx of tonsillectomy Hx of colonoscopy (10/26/20) Hx of colonoscopy (2008) Social History household members: spouse Smoking Status: Current every day smoker alcohol intake: current Meds Home Medications and Allergies Home Medications Medication Instructions Recorded Confirmed Type acetaminophen 325 mg tablet 650 mg (2 x 325 mg) PO TID #30 tabs 09/12/21 01/05/25 Rx Allergies Allergy/AdvReac Type Severity Reaction Status Date / Time Sulfa (Sulfonamide AdvReac Intermediate Nausea Verified 01/05/25 12:55 Antibiotics) Review of Systems Review of Systems Narrative: Negative except as listed in the HPI Exam Vital Signs (past 8 hours): - 01/05/25 12:45 Temperature 97.2 F L Pulse Rate 62 Respiratory Rate 16 Blood Pressure 121/80 Pulse Oximetry 94 Oxygen Delivery Method Room Air Oxygen Delivery Method Room Air Narrative Exam Narrative: Well-developed well-nourished, heart regular rate and rhythm without murmur, lungs clear to auscultation bilaterally Assessment & Plan Assessment & Plan narrative: Assessment: Chronic rhinosinusitis with nasal polyposis, nasal airway obstruction, hyposmia, facial pain, nasal airway obstruction, septal deviation, and inferior turbinate hypertrophy Plan: Following discussion of the material risks benefits complications and alternatives, the patient elected to proceed. Time-Based Coding :: [TOTAL MINUTES] spent with patient and on the chart (including review of chart, obtaining history, exam, reviewing outside data, placing orders, documenting exam and treatment plan, and counseling patient) on [DATE].
--- NOTE | 2025-01-05 13:34 | P.OP_ITS ---
Operative Date/Time/Diagnoses Date of procedure: 01/05/25 Time of procedure: 17:10 Pre-op diagnosis: Chronic rhinosinusitis with nasal polyposis, nasal airway obstruction, hyposmia, facial pain, nasal airway obstruction, septal deviation, and inferior turbinate hypertrophy Post-op diagnosis: same Procedure & Clinicians Procedure: 1. Septoplasty 2. Bilateral endoscopic maxillary antrostomy 3. Bilateral endoscopic total ethmoidectomy 4. Bilateral endoscopic sphenoidotomy 5. Bilateral inferior turbinate reduction via intramural cautery Same procedure as scheduled: Yes Indications: 69 Year old with the above diagnoses incompletely managed with medical therapy presents for the above procedure. Following discussion of the material risks benefits complications and alternatives, the patient elected to proceed. Surgeon: Dontae Saleh Click Yes if Unassisted: Yes Anesthesia Type: General and Local Operative Notes Findings: 2+ right septal deviation both bony and cartilaginous, right low septal flap tear, left entirely intact. Thin pale polyps both medial and lateral to each middle turbinate and partially filling the ethmoids. No inflammation within the maxillary sinuses. Frontal recess not approached. Estimated Blood Loss (mL): 150 Procedure in detail: Following identification and confirmation of consent as well as preoperative Afrin nasal spray, the patient was brought to the operating room suite and placed in the supine position. General endotracheal anesthesia was administered. I infiltrated the septum widely bilaterally with 1% lidocaine 1 100,000 epinephrine followed by temporary packing with cotton with Afrin and 4% lidocaine. Following sterile prep and drape, the packing was removed and I performed a right vinod-transfixion incision, elevated the right mucoperichondrial and mucoperiosteal flap. I disarticulated near the bony/cartilaginous junction and elevated the left mucoperiosteal flap. Deviated portions of the perpendicular plate of the ethmoid and vomer were resected. The residual quadrilateral cartilage was further straightened by trimming it inferiorly as well as reducing the maxillary crest. A 2 mm strip of cartilage paralleling the residual 1 cm dorsal and caudal strut was resected to further straighten the quadrilateral cartilage. The hemitransfixion incision was closed with interrupted 5 0 chromic followed by a running 4 0 plain gut mattress suture to reapproximate the septal flaps. The head of each inferior turbinate had been previously infiltrated with ad ditional local anesthetic and a 25 gauge spinal needle was used to impale the length of the turbinate, with cautery on a setting of 15 activated on slow withdrawal over 2 passes each side. The turbinates were then outfractured. Under endoscopic guidance the posterior and anterior superior insertion of each middle turbinate was then infiltrated with additional local anesthetic via spinal needle. Cotton pledgets with 1 1000 topical epinephrine were placed in the middle meatus bilaterally and used intermittently throughout the case for hemostasis. Beginning on the left side, the middle turbinate was slightly medialized and the uncinate process was identified with uncinectomy performed via the backbiting forceps and the microdebrider. The natural os of the maxillary sinus was identified and enlarged posteriorly and inferiorly with forceps and the microdebrider. Anterior ethmoidectomy was performed by removing the ethmoid bulla with the microdebrider. The basal lamella of the middle turbinate was penetrated inferomedially to enter the posterior ethmoids. The superior turbinate was identified and the inferior half was polypoid incompletely resected. The natural os of the sphenoid sinus was identified and enlarged primarily inferiorly and laterally with healthy mucosa within. Posterior to anterior ethmoid dissection along the skull base was performed. The frontal recess was approached but not entered. This procedure was repeated on the right side with identical findings. At case completion, 20/1000th of an inch silastic splints were placed bilaterally, sutured anteriorly with a single 4 0 nylon. The procedure completed, sponge and needle counts were correct and the patient was extubated in the operating room and taken to recovery room in stable condition without known complication. Complications: none Post-operative Condition: stable Disposition: same day surgery Plan for aftercare: Nasal saline every hour while awake, begin irrigations t.i.d. tomorrow, 2 of the 3 should include the budesonide. Polysporin to the nostrils at all times, Tylenol alternating with Advil for pain control, oxycodone for breakthrough pain. Elevate head of bed, no nose blowing, no straining for 2 weeks. Ice directly under the nose on the upper lip has tolerated 24-48 hours at a minimum. Follow-up in 1 week for nasal splint removal.
[2025-01-05] MEDS: LIDOCAINE 4% SOLN 50 ML 20 ML TOP (14:25)
[2025-01-05] MEDS: BACITRACIN OINT 0.9 GM PCKT 1 APPLIC TOP (14:25)
--- NOTE | 2025-01-05 14:47 | SUR.OPER ---
Supine on padded OR bed, head on gel pad, arms padded and tucked at sides, legs uncrossed, safety belt at thigh, tape over blanket over lower legs .
[2025-01-05] MEDS: LIDOCAINE 1% W/EPI 20ML 20 ML INJ (15:28)
[2025-01-05] MEDS: EPINEPHrine 1 MG/ML 6 MG TOP (15:33)
[2025-01-05] MEDS: OXYCODONE IR 5 MG TABLET PO ×2 (17:31→18:23)
[2025-01-05] MEDS: ONDANSETRON 4 MG/2 ML INJ IV (17:53)
== END 2025-01-05 18:24 | disposition home or self-care (01) ==
PROVIDERS: PCP Family Medicine; Referring Provider Otolaryngology; Visit Provider Otolaryngology
PROC: 09QM4ZZ Repair Nasal Septum, Percutaneous Endoscopic Approach (ICD-10-PCS; CPT 30520; principal; 2025-01-05 13:15)
DX: J34.2 Deviated nasal septum (principal); J34.3 Hypertrophy of nasal turbinates; J34.89 Other specified disorders of nose and nasal sinuses; J33.9 Nasal polyp, unspecified; J32.4 Chronic pansinusitis; F17.210 Nicotine dependence, cigarettes, uncomplicated
CPT/HCPCS: 31257; 30520; 31256; 30802; J0171; J1100; J2405; J2704; J3010